=== PATIENT | male | born 1955 | race Caucasian/White ===

== ENCOUNTER → 2023-08-20 13:54 | Outpatient (REF) | payer MEDICARE, SELFPAY | LOC: RAD 13:54 | PROVIDERS: ATTENDING PHYSICIAN Surgery Vascular Surgery; FAMILY PHYSICIAN General Practice | DX: N18.6 End stage renal disease (principal) | CPT/HCPCS: 93986 ==

== ENCOUNTER 2023-09-17 08:40 | Day surgery (SDC) | payer MEDICARE, SELFPAY ==
[2023-09-17] VITALS (13 sets, daily range): BP systolic 121–158; BP diastolic 63–78; BMI 31.3
[2023-09-17 09:07] LABS: Hematocrit 27.6 % (39.0-52.0); Hemoglobin 8.4 g/dL (13.0-18.0); Mean Corp Hgb Conc. 30.4 g/dL (33.0-37.0); Mean Corpuscular Hgb 18.4 pg (27.0-31.0); Mean Corpuscular Volume 60.4 fL (80.0-94.0); Red Blood Cell Count 4.57 10^6/uL (4.70-6.10); Red Cell Dist. Width 18.4 % (11.5-14.5); White Blood Cell Count 4.8 10^3/uL (4.8-10.8)
[2023-09-17 09:12] LABS: APTT 29.6 Sec (23.4-35.0); INR 1.19; PT 14.9 Sec (11.4-14.6)
[2023-09-17 09:22] LABS: Blood Urea Nitrogen 97 mg/dl (9-20); Calcium 9.4 mg/dl (8.4-10.2); Carbon Dioxide 28 mmol/L (22-30); Chloride 101 mmol/L (98-107); Glucose 176 mg/dl (70-99); Potassium 3.7 mmol/L (3.5-5.1); Sodium 138 mmol/L (135-145)
[2023-09-17] MEDS: BACTROBAN NASAL 1 GRAM NASAL (09:36)
[2023-09-17] MEDS: NSS 500 IV (09:36)
[2023-09-17] MEDS: PERIDEX 0.12% ORAL RINSE 15 ML PO (09:36)
[2023-09-17 09:42] LABS: Estimated Creatinine Clearance 21 ml/min; eGFR 16.31
[2023-09-17] MEDS: VANCOCIN 300 MG IV (10:11)
[2023-09-17] MEDS: VANCOCIN 300 ML IV (10:11)
--- NOTE | 2023-09-17 11:07 | W.SUR.PREOP ---
Pre-Operative Surgical Note
-
I have examined this patient prior to the performance of the scheduled procedure.
The patient's condition is unchanged from the time of the current History and
Physical and the patient is able to undergo the scheduled procedure.
--- NOTE | 2023-09-17 12:27 | W.SUR.POST ---
Surgical Immediate Post Op
Note
Pre Op Diagnosis: ESRD
Post Op Diagnosis: ESRD
Procedure Performed: RUE radiocephalic AV fistula creation
Primary Surgeon: Karthikeyan
Assist: Gustabo MELENDEZ
Anesthesia: LMA
Estimated Blood Loss: 5cc
Fluids: see anesthesia flow sheet
Drains/Shunts: none
Specimens/Cultures: none
Doppler/Duplex/Angio (Y/N): Y
Complications: none
Operative Findings: +thrill and palpable radial pulse
[2023-09-17 13:08] LABS: Glucose - Point of Care 233 mg/dl (70-99)
[2023-09-17] MEDS: ZOFRAN 4 MG IV (13:10)
[2023-09-17] MEDS: DILAUDID 0.25 MG IV (13:21)
[2023-09-17] MEDS: NOVOLOG vial 2 UNITS SC (13:30)
[2023-09-17] MEDS: ROXICODONE 5 MG PO (14:13)
[2023-09-17] MEDS: TYLENOL 650 MG PO (14:14)
--- NOTE | 2023-09-17 15:15 | OR.RPT ---
Addendum entered and electronically signed by River Napier MD 10/02/23 10:08:
CORRECTION TO BELOW NOTE : OPERATIVE DATE SHOULD READ 09/17/23.
Original Note:
Operative Report
Operative Report
PROCEDURE DATE: 06/13/2023
Preoperative diagnosis: End-stage renal disease approaching hemodialysis
Postoperative diagnosis: Same
Procedure: Right upper extremity radiocephalic arteriovenous fistula creation
Surgeon: Karthikeyan
Boom Stick Man: Gustabo, required for all aspects of procedure including traction/countertraction, assistance following suture line, assistance with closure.
Complications: None
Anesthesia: General
Indications for procedure:
End-stage renal disease approaching hemodialysis. Asked to evaluate for creation of permanent access. Risk/benefits/alternatives of fistula creation were discussed with the patient and his family. They understood all wish to proceed.
Description of procedure:
Patient was identified brought to the operating room placed on the table in supine position. After the adequate administration of anesthesia and perioperative antibiotics he was prepped and draped in the standard surgical fashion. A standard
preoperative timeout was undertaken and everybody was in agreement the plan. Note, prior to prepping and draping, I used an ultrasound to assess the cephalic vein in the upper arm and the forearm. The ultrasound vein mapping prior had demonstrated
that the cephalic vein in the forearm appeared to be slightly small. However now under anesthesia, the cephalic vein in the forearm appeared very suitable and in fact could be seen through the skin. Therefore I felt the radiocephalic fistula was a
reasonable option. A longitudinal incision was made distal forearm/wrist on the radial aspect. This was carried through skin subcutaneous tissue.
A small lateral subcutaneous flap was raised and a branch/extension of the cephalic vein was identified. It was carefully dissected away from surrounding structures take great care to avoid any injury to the structures. Any branches were ligated
between silk ties and then divided. Thus this allowed me to mobilize the vein. I mobilized the vein back to the confluence into the main cephalic vein. This was more lateral and that is why did not mobilize the main cephalic vein. I ligated the
cephalic vein distal to this juncture (distal towards the hand more). Once I mobilized the suitable segment, I deepened my dissection in the medial aspect of the incision through the fascial layer. Identified the radial artery. The artery had an
excellent pulse, but was a small artery. I carefully dissected away from surrounding structures take great care to avoid any injury to structures. I passed a vessel loop around it proximally and distally. This was double looped but not yet
tightened.
Next, I ligated the cephalic vein extension distally in my field with a silk tie and a clip. I then transected it. I distended the vein under heparinized saline. It distended very well. I passed the dilators using 2.5 mm, followed by 3 mm
dilators which passed without any difficulty whatsoever. I marked the anterior surface of the vein under distention to avoid any kinking or twisting.
Next, I gave the patient 3000 units of intravenous heparin. I tightened my double looped Vesseloops on the artery proximally and distally. I made an arteriotomy with a Duchesne blade and extended using a micro [place] scissor. I then spatulated the
cephalic vein and sewed an end to side anastomosis using a running 7-0 Prolene suture. I backbled the artery and then completed and tied down my suture line. Next I released my proximal vessel loop. Finally I released my outflow vessel loop.
There was a good thrill in the fistula. I gave some papaverine locally onto the field to help relieve any arterial spasm. There was an excellent pulse palpable in the radial artery distally at the wrist. At this point I was very satisfied. I
irrigated. We achieved and confirmed full hemostasis. We then closed in layers using 3-0 Vicryl deep dermal layer followed by 4 Monocryl subcuticular stitch. Dermabond was applied.
== END 2023-09-17 14:57 | disposition home or self-care (01) ==
LOC: CATH 08:40
PROVIDERS: ATTENDING PHYSICIAN Surgery Vascular Surgery; FAMILY PHYSICIAN General Practice
DX: N18.6 End stage renal disease (principal); Z99.2 Dependence on renal dialysis; I50.32 Chronic diastolic (congestive) heart failure; E11.8 Type 2 diabetes mellitus with unspecified complications; Z79.4 Long term (current) use of insulin; Z79.01 Long term (current) use of anticoagulants
CPT/HCPCS: 36821; 80048; 82962; 85027; 85610; 85730; 86850; 86900; 86901

== ENCOUNTER → 2023-11-06 12:51 | Outpatient (REF) | payer MEDICARE, SELFPAY | LOC: RAD 12:51 | PROVIDERS: ATTENDING PHYSICIAN Registered Nurse; FAMILY PHYSICIAN General Practice | DX: Z99.2 Dependence on renal dialysis (principal) | CPT/HCPCS: 93990 ==

== ENCOUNTER 2023-11-26 09:05 | Day surgery (SDC) | payer MEDICARE, SELFPAY ==
[2023-11-26 09:20] VITALS: BMI 29.9
[2023-11-26 09:42] LABS: Glucose - Point of Care 200 mg/dl (70-99)
[2023-11-26 09:58] LABS: Hematocrit 31.9 % (39.0-52.0); Hemoglobin 9.6 g/dL (13.0-18.0); Mean Corp Hgb Conc. 30.1 g/dL (33.0-37.0); Mean Corpuscular Hgb 19.6 pg (27.0-31.0); Mean Corpuscular Volume 65.2 fL (80.0-94.0); Red Blood Cell Count 4.89 10^6/uL (4.70-6.10); Red Cell Dist. Width 18.5 % (11.5-14.5); White Blood Cell Count 4.5 10^3/uL (4.8-10.8)
[2023-11-26 10:01] LABS: Blood Urea Nitrogen 69 mg/dl (9-20); Calcium 9.3 mg/dl (8.4-10.2); Carbon Dioxide 25 mmol/L (22-30); Chloride 103 mmol/L (98-107); Estimated Creatinine Clearance 19 ml/min; Glucose 181 mg/dl (70-99); Potassium 3.6 mmol/L (3.5-5.1); Sodium 138 mmol/L (135-145); eGFR 15.81
[2023-11-26 10:03] LABS: INR 1.43; PT 17.2 Sec (11.4-14.6)
[2023-11-26 10:04] LABS: APTT 34.4 Sec (23.4-35.0)
[2023-11-26 10:52] LABS: Platelet Count 94 10^3/uL (130-400)
--- NOTE | 2023-11-26 11:40 | W.SUR.POST ---
Surgical Immediate Post Op
Note
Pre Op Diagnosis: ESRD
Post Op Diagnosis: ESRD
Procedure Performed: RUE fistulagram, balloon angioplasty outflow vein stenosis
Primary Surgeon: Karthikeyan
Anesthesia: local and sedation
Estimated Blood Loss:
Fluids: see anesthesia flow sheet
Drains/Shunts: none
Specimens/Cultures: none
Doppler/Duplex/Angio (Y/N): Y
Complications: none
Operative Findings: +thrill
[2023-11-26 12:05] VITALS: BP 148/73
[2023-11-26 12:10] LABS: Glucose - Point of Care 196 mg/dl (70-99)
[2023-11-26 12:15] VITALS: BP 154/71
--- NOTE | 2023-11-26 12:17 | OR.RPT ---
Operative Report
Operative Report
PROCEDURE DATE: 11/26/2023
Preoperative diagnosis:
1. Worsening end-stage renal disease, approaching hemodialysis.
2. Failing right upper extremity radiocephalic arteriovenous fistula.
Postoperative diagnosis: Same
Procedure:
1. Duplex assisted cannulation of right upper extremity arteriovenous fistula cephalic outflow vein.
2. Right upper extremity fistulogram.
3. Balloon angioplasty of severe outflow vein stenosis with 4 mm, 5 mm standard angioplasty balloon, and then a 5 mm high-pressure angioplasty balloon.
4. Supervision and interpretation.
Surgeon: Karthikeyan
Evening Or Night Nurse Supervisor: None
Complications: None
Anesthesia: Local, sedation
Fluoroscopy:
8.2 min
3 mGy
0.79 Gy.cm2
Indications for procedure:
As noted above, worsening kidney dysfunction approaching hemodialysis. Right upper extremity radiocephalic AV fistula poorly maturing/nonmaturing. Concern for stenosis based on ultrasound. Therefore patient brought for fistulogram with possible
intervention. Risk/benefits/alternatives also discussed. Discussed utilizing minimal contrast in order to decrease potential renal risk. Patient understood all wish to proceed.
Description of procedure:
Patient was identified, brought to the operating room. Placed on the table in the supine position. After the adequate administration of anesthesia, the patient was prepped and draped in the standard surgical fashion. A standard preoperative
timeout was undertaken and everybody was in agreement with the plan.
A sterile ultrasound probe was brought onto the field, and the outflow vein was assessed. There appeared to be a high-grade stenosis just beyond the anastomosis as the vein coursed more laterally. The anastomosis appeared to be widely patent on
ultrasound. At this point therefore I then under duplex guidance, punctured the cephalic outflow vein in the proximal forearm and a peripheral facing direction using a micropuncture kit. I then exchanged over a 0.035 inch wire for a 5 Italian
sheath. I attempted to use a flopping on hydrophilic wire to get into the inflow or outflow artery across the anastomosis. However had difficulty doing so. I therefore then advanced a glide catheter and performed a fistulogram. This demonstrated
patent outflow of the fistula in the vicinity of the sheath. There was a little bit of spasm just distal to the sheath. The anastomosis was not seen to fill as contrast was not refluxing across there. However I could see the knob of the vein
coursing towards the anastomosis. I therefore then used a flopping on hydrophilic wire and a glide catheter. This proved to be very difficult as the stenosis was very severe to even cross with a flopping on hydrophilic wire, but finally was able
to gain wire access into the outflow radial artery. I then advanced a glide catheter and performed more complete fistulogram that confirmed the severe stenosis. The anastomosis was patent. Then about 2 cm beyond there the vein was severely
stenotic. At this point I then exchanged for a 0.018 inch wire. I gave the patient 3000 intervention is heparin. I then performed balloon angioplasty of the stenotic segment with a 4 mm angioplasty balloon. I could not get the waist to resolve.
I therefore then used a 5 mm balloon. Again could not get the waist to resolve. I had hesitation using a cutting balloon though because of the relatively smaller size of the vein just beyond the anastomosis. Therefore I elected to use a
high-pressure balloon. Therefore I exchanged for a 0.014 inch wire. I then used a cardiac 5 mm x 2 cm NC TREK NEOhigh-pressure balloon. Using this we were able to resolve the waist. I then exchanged the balloon out for a glide catheter with Eli
jim at the end. Completion fistulogram demonstrated excellent result with resolution of the stenosis now. Brisk flow through the fistula now. I elected not to perform more extensive imaging in order to minimize contrast. In addition there
was not a real concern for central stenosis. At this point wires and catheters were withdrawn. 4 Monocryl pursestring stitch was placed around the sheath entry site and tied down as the sheath was withdrawn. Manual pressure was also applied.
Small hematoma was noted. This was compressed well. Complete resolution of the hematoma is noted. There was good flow in the fistula upon completion.
The patient tolerated procedure well.
[2023-11-26 12:30] VITALS: BP 158/74
[2023-11-26 12:40] VITALS: BP 164/75
[2023-11-26 12:51] VITALS: BP 160/58
== END 2023-11-26 13:09 | disposition home or self-care (01) ==
LOC: CATH 09:05
PROVIDERS: ATTENDING PHYSICIAN Surgery Vascular Surgery; FAMILY PHYSICIAN General Practice
DX: T82.858A Stenosis of other vascular prosthetic devices, implants and grafts, initial encounter (principal); Y83.9 Surgical procedure, unspecified as the cause of abnormal reaction of the patient, or of later complication, without mention of misadventure at the time of the procedure; E11.22 Type 2 diabetes mellitus with diabetic chronic kidney disease; N18.6 End stage renal disease; Z99.2 Dependence on renal dialysis; I50.32 Chronic diastolic (congestive) heart failure; I48.0 Paroxysmal atrial fibrillation; I25.10 Atherosclerotic heart disease of native coronary artery without angina pectoris; Z95.1 Presence of aortocoronary bypass graft; G47.33 Obstructive sleep apnea (adult) (pediatric); Z79.4 Long term (current) use of insulin; Z79.01 Long term (current) use of anticoagulants; Z79.82 Long term (current) use of aspirin
CPT/HCPCS: 36902; C1769; C1725; C1894; 80048; 82962; 85027; 85610; 85730; 86850; 86900; 86901

== ENCOUNTER → 2024-01-01 12:43 | Outpatient (REF) | payer MEDICARE, SELFPAY | LOC: RAD 12:43 | PROVIDERS: ATTENDING PHYSICIAN Surgery Vascular Surgery | DX: I77.0 Arteriovenous fistula, acquired (principal) | CPT/HCPCS: 93990 ==

== ENCOUNTER → 2024-02-19 13:03 | Outpatient (REF) | payer MEDICARE, SELFPAY | LOC: RAD 13:03 | PROVIDERS: ATTENDING PHYSICIAN Registered Nurse; FAMILY PHYSICIAN General Practice; REFERRING PHYSICIAN Surgery Vascular Surgery | DX: I77.0 Arteriovenous fistula, acquired (principal) | CPT/HCPCS: 93990 ==

== ENCOUNTER → 2024-12-04 13:26 | Outpatient (REF) | payer MEDICARE, SELFPAY | LOC: RAD 13:26 | PROVIDERS: ATTENDING PHYSICIAN Surgery Vascular Surgery; FAMILY PHYSICIAN General Practice | DX: I77.0 Arteriovenous fistula, acquired (principal); N18.6 End stage renal disease | CPT/HCPCS: 93990 ==

== ENCOUNTER 2025-03-11 09:09 | Day surgery (SDC) | payer MEDICARE, SELFPAY ==
--- NOTE | 2025-03-10 18:10 | PTCARENOTE ---
Pacemaker device information requested, but not received. Device information dated 11/[address] Pinedo. No further orders at this time.
[2025-03-11] VITALS (8 sets, daily range): BP systolic 119–154; BP diastolic 56–88; BMI 27.3
[2025-03-11 09:42] LABS: Glucose - Point of Care 173 mg/dl (70-99)
[2025-03-11 09:48] LABS: INR 1.15; PT 15.2 Sec (11.4-14.6)
[2025-03-11 09:49] LABS: APTT 30.6 Sec (23.4-35.0)
[2025-03-11 09:56] LABS: Blood Urea Nitrogen 53 mg/dl (9-20); Calcium 9.7 mg/dl (8.4-10.2); Carbon Dioxide 25 mmol/L (22-30); Chloride 106 mmol/L (98-107); Estimated Creatinine Clearance 18 ml/min; Glucose 186 mg/dl (70-99); Potassium 4.7 mmol/L (3.5-5.1); Sodium 140 mmol/L (135-145); eGFR 15.25
[2025-03-11] MEDS: NSS 500 IV (09:58)
[2025-03-11] MEDS: PERIDEX 0.12% ORAL RINSE 15 ML PO (10:01)
[2025-03-11] MEDS: BACTROBAN NASAL 1 GRAM NASAL (10:01)
[2025-03-11 10:15] LABS: Hematocrit 34.5 % (39.0-52.0); Hemoglobin 10.3 g/dL (13.0-18.0); Mean Corp Hgb Conc. 29.9 g/dL (33.0-37.0); Mean Corpuscular Volume 64.1 fL (80.0-94.0); Red Cell Dist. Width 19.9 % (11.5-14.5)
[2025-03-11 10:30] LABS: Platelet Count 72 10^3/uL (130-400)
--- NOTE | 2025-03-11 11:10 | PTCARENOTE ---
Marley MELENDEZ made aware of pt's PLT count of 72, no new orders
--- NOTE | 2025-03-11 15:14 | W.SUR.POST ---
Surgical Immediate Post Op
Note
Pre Op Diagnosis: ESRD
Post Op Diagnosis: ESRD
Procedure Performed: RUE brachiocephalic AV fistula creation
Primary Surgeon: Karthikeyan
Secondary Surgeons: Ryan MELENDEZ
Anesthesia: LMA
Estimated Blood Loss: 10cc
Fluids: See anesthesia flow sheet
Drains/Shunts: none
Specimens/Cultures: None
Doppler/Duplex/Angio (Y/N): Y
Complications: none
Operative Findings: +thrill
--- NOTE | 2025-03-11 15:56 | OR.RPT ---
Operative Report
Operative Report
PROCEDURE DATE: 03/11/2025
Preoperative diagnosis: End-stage renal disease on hemodialysis
Postoperative diagnosis: Same
Procedure: Right upper extremity brachiocephalic arteriovenous fistula creation
Surgeon: Katrhikeyan
Guest Advisor: MARU Davis , required for aspect of procedure including assistance with traction/countertraction, following a suture line, assistance with closure.
Complications: None
Anesthesia: General
Indications for procedure:
End-stage renal disease on hemodialysis. Failed right upper extremity radiocephalic AV fistula. Therefore brought for new fistula creation. Risk/benefits/alternatives also discussed. Patient understood all and wished to proceed.
Description of procedure:
Patient was identified brought to the operating room placed on the table in supine position. After induction of anesthesia, I mapped the upper arm veins in the right upper extremity with an ultrasound. Cephalic vein looked great overall, but there
was 1 segment just a few centimeters central to the antecubital fossa where it appeared to narrow down. I felt it was still worthwhile to explore that as it may be just under spasm. And the remainder of the vein looks very good. After the
adequate administration of anesthesia and perioperative antibiotics he was prepped and draped in the standard surgical fashion. A standard preoperative timeout was undertaken and everybody was in agreement the plan. A transverse incision was made
in the proximal volar aspect of the forearm just distal to the antecubital fossa. This was carried through skin subcutaneous tissue. The antecubital extension of the cephalic vein was identified and carefully dissected away from surrounding
structures and great care to avoid any injury to structures. Any branches were ligated between silk ties and then divided. As such I was able to mobilize a suitable length of cephalic vein. I examined the vein slightly more centrally and it
appeared reasonable although it may have been slightly narrowed compared to the antecubital section. But it was soft. Once I had done this I then deepened my dissection in the medial aspect of the incision site through the fascial layer. The
brachial artery was carefully identified and carefully dissected away from surrounding structures take great care to avoid injury to structures. I passed a vessel loop around it proximally and distally. Next I gave the patient 4000 units of
intravenous heparin. I then ligated the cephalic vein distally in my field with a silk tie and a clip. I then transected it. I distended under heparinized saline. It distended very well in the antecubital fossa, but not up the arm as well.
Therefore, at this point I ran a 2 mm dilator through. Initially my dilator got held up just at the point that I had noted on ultrasound just a few centimeters central to the portion that I exposed. But then the dilator popped through nicely and
dilated the vein. At this point I was able to easily pass without any difficulty or hold up a 2.5 mm, 3 mm, 3.5 mm, 4 mm, 4.5 mm dilator. The entire vein nondistended very well under heparinized saline. Next I tightened my doubly looped
Vesseloops on the artery proximally and distally. I then made an arteriotomy with 11 blade extended using a [place] scissor. I spatulated the cephalic vein and sewed an end to side anastomosis using a running 6-0 Prolene suture. Prior to completing
and tying down my suture line I backbled and forebled the [place] artery. Next I released the y Vesseloops on the artery. There was an excellent thrill in the fistula. There was a palpable pulse at the wrist in the radial artery. At this point I
was very satisfied. I irrigated. I achieved and confirmed full hemostasis. Hemostasis had to be meticulously achieved. The surface of the vein was a little bit raw from likely prior venipunctures and therefore was slightly easy, but full
hemostasis was achieved. I then closed in layers using 3-0 Vicryl deep dermal layer followed by 4-0 Monocryl subcuticular stitch. Dermabond was applied. All sponge, needle, and instrument counts were correct at the end of the case. The patient
tolerated the procedure well.
[2025-03-11 16:02] LABS: Glucose - Point of Care 160 mg/dl (70-99)
== END 2025-03-11 17:38 | disposition home or self-care (01) ==
LOC: CATH 09:09
PROVIDERS: ATTENDING PHYSICIAN Surgery Vascular Surgery; FAMILY PHYSICIAN General Practice; OTHER PHYSICIAN Internal Medicine Interventional Cardiology
DX: N18.6 End stage renal disease (principal); Z99.2 Dependence on renal dialysis; I48.0 Paroxysmal atrial fibrillation; E11.22 Type 2 diabetes mellitus with diabetic chronic kidney disease; Z79.4 Long term (current) use of insulin
CPT/HCPCS: 36821; 80048; 82962; 85027; 85610; 85730; 86850; 86900; 86901

== ENCOUNTER → 2025-06-03 13:41 | Outpatient (REF) | payer MEDICARE, SELFPAY | LOC: RAD 13:41 | PROVIDERS: ATTENDING PHYSICIAN Registered Nurse; FAMILY PHYSICIAN General Practice; OTHER PHYSICIAN Surgery Vascular Surgery | DX: N18.6 End stage renal disease (principal); Z99.2 Dependence on renal dialysis | CPT/HCPCS: 93990 ==